=== PATIENT | female | born 1970 | race Two or more races ===

== ENCOUNTER 2016-09-01 03:10 | Emergency (ER) | payer MEDICAID ==
[2016-09-01] MEDS ORDERED: Dexamethasone Sodium Phos 4 mg/mL Vial IM STA (03:36)
[2016-09-01] MEDS ORDERED: Codeine/Promethazine Susp 5 mL UDC PO STA (03:37)
[2016-09-01] MEDS ORDERED: Dexamethasone Sodium Phos 10 mg/mL PF Vial ONE (03:37)
[2016-09-01] MEDS ORDERED: Codeine/Promethazine Susp 5 mL UDC ONE ×2 (03:38→03:39)
--- NOTE | 2016-09-01 03:41 | ED Physician Chart ---
Chief Complaint/HPI - Patient Information Date Seen:: 09/01/16 Time Seen:: 03:10 Chief Complaint:: cough History of Present Illness:: 46-year-old female, otherwise healthy, with acute, moderate to severe, nonproductive, worse at night, cough 2 weeks. Has associated sore throat. Historian:: Patient Review:: Nurse's Note Reviewed Review of Systems - Review of Systems Other: Complete system review otherwise unremarkable except as noted in HPI. Past Medical History - Past Medical History Past Medical History: No significant medical hx Family History: None Social History: Non Smoker, No Alcohol, No Drug Use, Employed Surgical History: None Psychiatricy History: None Medication: None Family Medical History - Family Member Mother History Unknown: Yes Ethnicity: Son Ethnicity: Living Status: Still Living Physical Exam - Physical Examination Other:: INITIAL VITAL SIGNS: Reviewed by me GENERAL: Alert and interactive. No acute distress HEAD: Head is normocephalic and atraumatic EYES: EOMI. . No scleral icterus. No conjunctival injection ENT: Moist mucous membranes. Tonsils are erythematous with slight exudate. NECK: Supple. Bilateral cervical adenopathy. Full range of motion RESPIRATORY: No tachypnea. Prolonged phase bilaterally. No wheezing, rales, or rhonchi CV: Regular rate and rhythm. No murmurs, rubs, or gallops ABDOMEN: Soft, non-distended, non-tender. No guarding. No rebound. No masses. EXTREMITIES: No deformity. No cyanosis. No edema. SKIN: Warm and dry. No obvious rashes. NEUROLOGIC: Alert and oriented. Face is symmetric. Speech is normal. Moves all extremities equally. Motor and sensory distally intact. ED Septic Shock - . Is Septic Shock (SBP<90, OR Lactate>4 mmol\L) present?: No Reassessment (Disposition) - Reassessment Reassessment:: The patient's blood pressure was elevated (>120/80) but appears stable without evidence of hypertensive emergency or urgency. The patient was counseled about the risks hypertension urged to pursue outpatient monitoring and therapy within a week with her primary care physician. Patient has bronchitis. Also some pharyngitis. Provided prescriptions for antibiotics, antiemetics and analgesics. Gave by mouth Phenergan with codeine, intramuscular dexamethasone, ketorolac. Symptoms improved. Prescriptions given. Follow-up PCP 1-2 days. Return to ER precautions given. Patient understands and agrees. Reassessment Condition:: Improved - Diagnosis Diagnosis:: Acute bronchitis Acute pharyngitis Elevated blood pressure without diagnosis of hypertension - Aftercare/Follow up Instructions Aftercare/Follow-Up Instructions:: Counseled pt regarding lab results/diagnosis & need follow up, Refer to Discharge Instructions Medication Prescribed:: Azithromycin Prednisone Neelam Jj - Patient Disposition Discharge/Transfer:: Home Time:: 03:40 Condition at Disposition:: Improved ED Discharge Plan - Patient Disposition Admit/Discharge/Transfer: PT DISCHARGED HOME Condition at Disposition: Improved Instructions: Bronchitis, [id number], Viral and Bacterial Pharyngitis Additional Instructions: Follow up with your primary care physician within 1 to 2 days
== END 2016-09-01 03:58 | disposition home or self-care (01) ==
LOC: ER 03:10
DX: J02.9 Acute pharyngitis, unspecified (principal); J20.9 Acute bronchitis, unspecified; R03.0 Elevated blood-pressure reading, without diagnosis of hypertension
CPT/HCPCS: 99284; 96372 ×2; J1885; Z7502